=== PATIENT | female | born 1985 | race Two or more races ===

== ENCOUNTER 2018-11-03 06:00 | Inpatient (IN) | payer OTHER ==
[~2018-11-03] VITALS: Ht 149.9 cm; Wt 87.1 kg
[2018-11-03] MEDS ORDERED: LACT. RINGERS/OXYTOCIN 20UNITS 1,000 ML IV SCH (06:47)
[2018-11-03] MEDS ORDERED: METHYLERGONOVINE MALEATE 0.2 MG/ML AMP IM PRN (07:00)
[2018-11-03] MEDS: LACTATED RINGER'S 1,000 ML IV SCH ×3 (07:00→22:47)
[2018-11-03] MEDS ORDERED: BETAMETHASONE ACET (6MG/ML) 5ML VIAL IM ONE (07:00)
[2018-11-03] MEDS ORDERED: PENICILLIN G POT 5MIL/D5 50ML 50 ML IV ONE ×2 (07:00→07:09)
[2018-11-03] MEDS ORDERED: DERMOPLAST 60ML BOTTLE TOP PRN (07:00)
[2018-11-03] MEDS ORDERED: CARBOPROST TROMETHAMINE 250 MCG/1ML VIAL IM PRN (07:00)
[2018-11-03] MEDS ORDERED: NALBUPHINE HCL 10 MG/1ml INJECTION IV PRN (07:00)
[2018-11-03] MEDS ORDERED: PHISODERM TOP SOLN 240ML BTL TOP PRN (07:00)
[2018-11-03] MEDS ORDERED: WITCH HAZEL-GLYCERIN PAD TOP PRN (07:00)
[2018-11-03] MEDS ORDERED: LIDOCAINE 2%HCL (LOCAL ANESTH.) INJ 20ML MDV ID ONE (07:00)
[2018-11-03 07:17] LABS: Basophils # (auto) 0.1 uL; Basophils % (auto) 0.7 % (0.0-2.0); Eosinophils # (auto) 0.2 uL; Hematocrit 37.7 % (36.0-46.0); Hemoglobin 12.6 g/dL (12.2-16.2); Lymphocytes # (auto) 2.2 uL; Lymphocytes % (auto) 28.5 % (10.0-50.0); Mean Corpuscular Hemoglobin 27.4 pg (28.0-32.0); Mean Corpuscular Hgb Conc. 33.4 g/dL (32.0-36.0); Monocytes # (auto) 0.8 uL; Monocytes % (auto) 9.9 % (0.0-12.0); Neutrophils # (auto) 4.6 uL; Neutrophils % (auto) 57.9 % (37.0-80.0); Nucleated Red Blood Cells % 0.1 %; Platelet Count (auto) 312 10^3/uL (140-450); Red Cell Distribution Width 18.5 % (11.8-14.3); White Blood Cell 7.9 10^3/uL (4.4-10.8)
[2018-11-03 07:34] LABS: Urine Bacteria FEW /hpf (None Seen); Urine Blood Negative /uL (Negative); Urine Mucus FEW (None Seen); Urine WBC 2 /hpf (0 - 5)
[2018-11-03 07:36] LABS: Albumin 2.3 g/dL (3.4-5.0); Calcium 8.7 mg/dL (8.5-10.1); Potassium 4.2 mmol/L (3.5-5.1)
[2018-11-03 07:37] LABS: INR 0.8 (0.9-1.15); Partial Thromboplastin Time 27.1 sec (23.78-33.04); Prothrombin Time 8.7 sec (9.27-12.13)
[2018-11-03 07:39] LABS: BUN/Creatinine Ratio 15.2; Bilirubin, Total 0.2 mg/dL (0.2-1.0); Total Protein 6.9 g/dL (6.4-8.2)
[2018-11-03 07:40] LABS: Alcohol, Urine < 3.0 mg/dL (0-5); Amphetamine Screen, Urine NEGATIVE (NEGATIVE); Barbiturate Scree,Urine NEGATIVE (NEGATIVE); Benzodiazephine Screen, Urine NEGATIVE (NEGATIVE); Cannabinoid Screen, Urine NEGATIVE (NEGATIVE); Cocaine Screen, Urine NEGATIVE (NEGATIVE); Opiate Scree,Urine NEGATIVE (NEGATIVE); Phencyclidine Screen, Urine NEGATIVE (NEGATIVE)
[2018-11-03] MEDS: PENICILLIN G POTASSIUM 2,500,000 UNITS in D5W 5% 50 ML IV SCH ×4 (11:28→23:15)
[2018-11-03] MEDS ORDERED: ceFAZolin 1GM/50ML 50 ML IV SCH (14:00)
[2018-11-03] MEDS ORDERED: IBUPROFEN 600 MG TAB PO PRN (17:30)
[2018-11-03 18:52] VITALS: BP 117/66
--- NOTE | 2018-11-03 19:33 | NUR ---
Ambulation: Patient OOB with standby assistance by RN. Patient ambulated to bathroom with steady gait. Patient able to void 700 ml without difficulty. [facility] teaching provided with returned demonstration by patient. Clean peripad, tucks and dermoplast applied. Clean gown provided and bed linen changed. Patient ambulated back to bed with steady gait and no distress noted.
[2018-11-03 23:00] VITALS: BP 112/55
[2018-11-04 03:00] VITALS: BP 99/54
[2018-11-04] MEDS: PENICILLIN G POTASSIUM 2,500,000 UNITS in D5W 5% 50 ML IV SCH ×4 (03:15→15:15)
[2018-11-04 07:00] VITALS: BP 101/60
--- NOTE | 2018-11-04 10:25 | NUR ---
report given to angelica mendez rn patient in stable condition.
--- NOTE | 2018-11-04 10:26 | NUR ---
PT REPORT RECEIVED FROM Stacy MOYER RN ON STABLE PATIENT, ASSUMING CARE.
--- NOTE | 2018-11-04 11:00 | NUR ---
PT REPORT GIVEN TO Mariano AUSTIN RN ON STABLE PATIENT, RELINQUISHED CARE.
[2018-11-04 15:30] VITALS: BP 116/55
[2018-11-04 19:30] VITALS: BP 111/55
[2018-11-04] MEDS ORDERED: LEVO75TA6 PO (21:23)
[2018-11-04] MEDS ORDERED: PREN-96 PO (21:24)
[2018-11-04] MEDS ORDERED: FERR-7 PO (21:25)
--- NOTE | 2018-11-04 22:15 | NUR ---
Discharge: Discharge instructions given as ordered. Pt encouraged to follow up with [facility] as instructed. All questions and concerns addressed. Patient verbalized understanding. Medication reconciliation completed and copy given to patient. All required/requested vaccines given and copies of vaccinations given to patient. Patient encouraged to prepare to depart unit.
[2018-11-04 22:27] VITALS: BP 112/72
--- NOTE | 2018-11-04 22:27 | NUR ---
Discharge: Patient taken to vehicle via wheelchair with all personal belongings, accompanied by staff and family memberS. No distress noted at time of departure, no adverse changes in status since initial assessment.
[2018-11-05 06:05] LABS: RPR Non Reactive (Non Reactive)
[2018-11-05 12:08] LABS: Rubella Antibodies, IgG 2.33 index (Immune >0.99)
== END 2018-11-04 22:27 | disposition home or self-care (01) | DRG 807 ==
LOC: LDRP 06:00 → OBSVTOIN 06:28 → LDRP 06:40
PROVIDERS: ADMIT Specialist; ATTEND Specialist
PROC: 10E0XZZ Delivery of Products of Conception, External Approach (ICD-10-PCS; principal; 2018-11-03)
PROC: 0KQM0ZZ Repair Perineum Muscle, Open Approach (ICD-10-PCS; 2018-11-03)
DX: O42.913 Preterm premature rupture of membranes, unspecified as to length of time between rupture and onset of labor, third trimester (principal); Z37.0 Single live birth; O70.1 Second degree perineal laceration during delivery; Z3A.36 36 weeks gestation of pregnancy
CPT/HCPCS: 36415; 59025; 59409; 80053; 80307; 81001; 81002; 85025; 85610; 85730; 86592; 86703; 86762; 86850; 86900; 86901; 87340; 96361; 96365; G0378; J2540; J2590; J7060

== ENCOUNTER 2025-02-23 17:20 | Emergency (ER) | payer MEDICAID, OTHER ==
[~2025-02-23] VITALS: Ht 152.4 cm; Wt 91.4 kg
[~2025-02-23 17:20] MED LIST: FERR-7 PO; LEVO75TA6 PO; PREN-96 PO
[2025-02-23 18:29] LABS: Hematocrit 39.6 % (36.0-46.0); Hemoglobin 13.1 g/dL (12.2-16.2); Mean Corpuscular Hemoglobin 27.0 pg (28.0-32.0); Mean Corpuscular Volume 82.0 fL (80.0-100.0); Nucleated Red Blood Cells % 0.0 %
[2025-02-23 18:37] LABS: Chloride 107 mmol/L (98-107); Potassium 4.7 mmol/L (3.5-5.1); Sodium 140 mmol/L (136-145)
[2025-02-23 18:38] LABS: Anion Gap 7 (5-15); Calcium 9.2 mg/dL (8.7-10.4); Carbon Dioxide 26 mmol/L (20-31)
[2025-02-23 18:43] LABS: BUN/Creatinine Ratio 12.8 (10.0-20.0); Blood Urea Nitrogen 11 mg/dL (9-23)
[2025-02-23 18:45] LABS: Glucose 109 mg/dL (74-106)
--- NOTE | 2025-02-23 19:10 | ED.PDOC ---
History of Present Illness HPI Comments Patient is a 39-year-old female with no significant past medical history presented to the ED with a chief complaint of left facial and left arm numbness for 1 day. Patient reports she was apparently well until yesterday morning when she started to have tingling sensation on the left side of her face in the left temporal, maxillary area with a pain in the left temporal area which was about 6/10 in intensity. Patient denied headache, blurred vision, dizziness, no other focal weakness. She then started to have numbness and tingling in the left arm going down to her hand. Patient denied any chest pain, shortness of breath, palpitations. Chief Complaint: Upper Extremity Time Seen by MD: 17:57 Primary Care Provider: UNKNOWN Allergies: Coded Allergies: NO KNOWN ALLERGIES (Unverified , 11/03/18) Home Meds Reported Medications Ferrous Sulfate (Iron) 325 Mg Tab, 325 MG PO, TAB 11/04/18 Vit W/ Ferrous Fumara ( One Daily) Daily Tab, 1 TAB PO DAILY, #90 TAB 3 Refills 11/04/18 Levothyroxine Sodium (Levothyroxine Sodium) 75 Mcg Tab, 1 TAB PO DAILY, #30 TAB 5 Refills 11/04/18 Mode of Arrival: Ambulatory Past Medical History PAST MEDICAL HISTORY: Denies Surgical History: Denies all surgeries [employer]ING [employer]AKER History: Ectopic Family History Family History: Reviewed,noncontributory to illness, No family hx of Cancer, No family hx of DM, No family hx of Heart ish, No family hx of HTN, No family hx ofKidney ish, No family hx of Liver ish, No family hx of Lung ish, No family hx of Stroke Social History Smoker: Non-Smoker Alcohol: Denies ETOH Use Drugs: Denies Drug Use Constitutional: denies: chills, diaphoresis, fatigue, fever, malaise, sweats, weakness, others EENTM: denies: blurred vision, double vision, ear bleeding, ear discharge, ear drainage, ear pain, ear ringing, eye pain, eye redness, hearing loss, mouth pain, mouth swelling, nasal discharge, nose bleeding, nose congestion, nose pain, photophobia, tearing, throat pain, throat swelling, voice changes, others Respiratory: denies: cough, hemoptysis, orthopnea, SOB at rest, shortness of breath, SOB with excertion, stridor, wheezing, others Cardiovascular: denies: chest pain, dizzy spells, diaphoresis, Dyspnea on exertion, edema, irregular heart beat, left arm pain, lightheadedness, palpitations, PND, syncope, others Gastrointestinal: denies: abdomen distended, abdominal pain, blood streaked bowels, constipated, diarrhea, dysphagia, difficulty swallowing, hematemesis, melena, nausea, poor appetite, poor fluid intake, rectal bleeding, rectal pain, vomiting, others Genitourinary: denies: abnormal vagina bleeding, burning, dyspareunia, dysuria, flank pain, frequency, hematuria, incontinence, pain, , vagina discharge, urgency, others Neurological: reports: left sided numbness, tingling Musculoskeletal: denies: back pain, gout, joint pain, joint swelling, muscle pain, muscle stiffness, neck pain, others Integumetry: denies: bruises, change in color, change in hair/nails, dryness, laceration, lesions, lumps, rash, wounds, others Allergic/Immunocompromised: denies: Difficulty Healing, Frequent Infections, Hives, Itching, others Hematologic/Lymphatic: denies: anemia, blood clots, easy bleeding, easy bruising, swollen glands, others Endocrine: denies: excessive hunger, excessive sweating, excessive thirst, excessive urination, flushing, intolerance to cold, intolerance to heat, unexplained weight gain, unexplained weight loss, others Psychiatric: denies: anxiety, bipolar disorder, depression, hopeless, panic disorder, schizophrenia, sleepless, suicidal, others Physical Exam General Appearance: No Apparent Distress, Normal HEENT: Normal ENT Inspection, Pharynx Normal, TMs Normal Neck: Full Range of Motion, Non-Tender, Normal, Normal Inspection Respiratory: Chest Non-Tender, Lungs Clear, No Accessory Muscle Use, No Respiratory Distress, Normal Breath Sounds Cardiovascular: No Edema, No JVD, No Murmur, No Gallop, Normal Peripheral Pulses, Regular Rate/Rhythm Breast Exam: Deferred Gastrointestinal: No Organomegaly, Non Tender, No Pulsatile Mass, Normal Bowel Sounds, Soft Genitalia: Deferred Pelvic: Deferred Rectal: Deferred Extremities: No calf tenderness, Normal capillary refill, Normal inspection, Normal range of motion, Non-tender, No pedal edema Neurologic: Alert, 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 Was a procedure done?: No Differential Dx Considerations may include: Acute stroke, TIA, shingles, cervical radiculopathy, peripheral neuropathy, carpal tunnel syndrome X-Ray, Labs, Meds, VS Vital Signs Date Time Temp Pulse Resp B/P (MAP) Pulse Ox O2 Delivery O2 Flow Rate FiO2 02/23/25 18:19 98.7 71 16 110/48 (68) 99 98.7 Lab Test 02/23/25 18:20 02/23/25 18:17 Range/Units White Blood Count 8.8 4.4-10.8 10^3/uL Red Blood Count 4.83 4.0-5.20 10^6/uL Hemoglobin 13.1 12.2-16.2 g/dL Hematocrit 39.6 36.0-46.0 % Mean Corpuscular Volume 82.0 80.0-100.0 fL Mean Corpuscular Hemoglobin 27.0 L 28.0-32.0 pg Mean Corpuscular Hemoglobin Concent 33.0 32.0-36.0 g/dL Red Cell Distribution Width 14.3 11.8-14.3 % Platelet Count 318 140-450 10^3/uL Mean Platelet Volume 7.4 6.9-10.8 fL Neutrophils (%) (Auto) 58.3 37.0-80.0 % Lymphocytes (%) (Auto) 29.6 10.0-50.0 % Monocytes (%) (Auto) 8.8 0.0-12.0 % Eosinophils (%) (Auto) 2.7 0.0-7.0 % Basophils (%) (Auto) 0.6 0.0-2.0 % Neutrophils # (Auto) 5.1 1.6-8.6 10 ^3/uL Lymphocytes # (Auto) 2.6 0.4-5.4 10 ^3/uL Monocytes # (Auto) 0.8 0-1.3 10 ^3/uL Eosinophils # (Auto) 0.2 0-0.8 10 ^3/uL Basophils # (Auto) 0.1 0-0.2 10 ^3/uL Nucleated Red Blood Cells 0.0 % Sodium Level 140 136-145 mmol/L Potassium Level 4.7 3.5-5.1 mmol/L Chloride Level 107 98-107 mmol/L Carbon Dioxide Level 26 20-31 mmol/L Anion Gap 7 5-15 Blood Urea Nitrogen 11 9-23 mg/dL Creatinine 0.86 0.550-1.02 mg/dL Glomerular Filtration Rate Calc 87 >90 mL/min BUN/Creatinine Ratio 12.8 10.0-20.0 Serum Glucose 109 H 74-106 mg/dL Calcium Level 9.2 8.7-10.4 mg/dL Urine Test Negative Negative Patient is a 39-year-old female with no significant past medical history came to the ER with a chief complaint of left facial and left arm numbness for 1 day. Patient denied any focal weakness. CT head without contrast showed no acute territorial infarct, intracranial hemorrhage, or mass effect. Labs including CBC and BMP were grossly normal. Patient did report of numbness but denied any headache, blurry vision, focal weakness. Patient was advised that if the numbness continuous, she should follow up in the discharge clinic for further workup and probably a neurology follow up would be needed. Patient is being discharged in stable condition to home Time of 1ST Reevaluation: 19:24 Reevaluation 1ST: Unchanged Patient Education/Counseling: Diagnosis, Treatment, Prognosis, Need For Follow Up (Patient and the was advised that if she continues to numbness to follow up in the discharge clinic for further workup with an MRI and a possible neurology consultation) Family Education/Counseling: Diagnosis, Treatment, Prognosis, Need For Follow Up SEPSIS Sepsis Screen Date sepsis recognized/suspect: Feb 23, 2025 Time Sepsis recognized/suspect: 1809 Recent Procedure: No On Antibiotic Therapy: No Respiratory Rate >20: No Heart Rate >90: No Temp<36 C (96.8 F) or >38.3 C: No SBP <90 or MAP <65 mmHG: No New Acute Mental Status Change: No Is the patient on CPAP, BIPAP,: No Physician Orders Head Without Contrast (02/23/25 18:01) Vital Signs Date Time Temp Pulse Resp B/P (MAP) Pulse Ox O2 Delivery O2 Flow Rate FiO2 02/23/25 18:19 98.7 71 16 110/48 (68) 99 98.7 Laboratory Tests Test 02/23/25 18:20 White Blood Count 8.8 10^3/uL (4.4-10.8) Departure 1 Departure Time of Disposition: 20:48 Impression: Primary Impression: Numbness and tingling in left hand Additional Impression: Numbness and tingling of left side of face Disposition: 01 HOME / SELF CARE / HOMELESS Condition: Stable Critical Care Note Critical Care Time?: No Stability Stability form required: No Heart Score Heart Score: Heart Score Response (Comments) Value History N/A 0 EKG N/A 0 Age N/A 0 Risk Factors N/A 0 Troponin N/A 0 Total 0 OSEI GIPSON RESIDENT Feb 23, 2025 19:10
--- NOTE | 2025-02-23 19:41 | DVH ---
CT HEAD WITHOUT CONTRAST INDICATION: left facial and arm numbness EXAM DATE: 02/23/2025 07:00 PM COMPARISON: None RADIATION DOSE: CTDIvol: 51.92 mGy, DLP: 832.46 mGy*cm PROCEDURE: CT scans of the head were obtained from the vertex to the skull base. Sagittal and coronal reconstructions were provided. All CT scans at this medical facility are performed using dose modulation techniques as appropriate t o a performed exam including the following: Automated exposure control was utilized; adjustment of th e MA and/or KV according to patient size; and use of iterative reconstruction technique. FINDINGS: Evaluation is mildly degraded by motion artifact. The cerebral parenchyma appears to be normal configuration and attenuation. The ventricles, cisterns , and sulci appear age-appropriate. There is no evidence for acute territorial infarct, hemorrhage, or mass effect. Incidental note of a partially empty sella. The orbits are normal. Incompletely assessed polyp versus retention cyst within the left maxillary an trum. Paranasal sinuses and mastoid air cells are otherwise clear. The soft tissues and osseous str uctures appear within normal limits. IMPRESSION: 1. No acute territorial infarct, intracranial hemorrhage, or mass effect. 2. If clinical symptoms persist, MRI may be beneficial in further assessment.
[2025-02-23 23:00] VITALS: PULSE 68; RESP 12; TEMP 97.6; O2SAT 99
[2025-02-23 23:05] VITALS: BP 111/44
== END 2025-02-23 23:05 | disposition home or self-care (01) ==
LOC: ER 17:20
DX: R20.0 Anesthesia of skin (principal); R20.2 Paresthesia of skin; Z79.899 Other long term (current) drug therapy; Z79.890 Hormone replacement therapy
CPT/HCPCS: 36415; 70450; 80048; 81025; 85025